=== PATIENT | male | born 2005 | race Caucasian/White ===

== ENCOUNTER 2024-12-21 09:58 | Outpatient (CLI) | payer BC | END 2024-12-21 09:59 | disposition home or self-care (01) | LOC: SCSMRI 09:58 | PROVIDERS: ATTEND Orthopaedic Surgery | DX: S72.001A Fracture of unspecified part of neck of right femur, initial encounter for closed fracture (principal); M51.26 Other intervertebral disc displacement, lumbar region; M46.1 Sacroiliitis, not elsewhere classified; M16.11 Unilateral primary osteoarthritis, right hip | CPT/HCPCS: 72148; 72195 ==